=== PATIENT | female | born 1990 | race Caucasian/White ===

== ENCOUNTER → 2021-01-26 16:10 | Outpatient (BNVA) | payer MEDICAID, SELFPAY | PROVIDERS: Visit Provider Family Medicine | DX: E03.9 Hypothyroidism, unspecified (principal); E21.3 Hyperparathyroidism, unspecified; E66.01 Morbid (severe) obesity due to excess calories; Z76.89 Persons encountering health services in other specified circumstances; K75.81 Nonalcoholic steatohepatitis (NASH) | CPT/HCPCS: 80053; 82306; 82310; 83970; 84443; 85025 ==

== ENCOUNTER → 2021-05-11 15:25 | Outpatient (BNVA) | payer MEDICAID, SELFPAY | PROVIDERS: Visit Provider Family Medicine | DX: K75.81 Nonalcoholic steatohepatitis (NASH) (principal); Z13.220 Encounter for screening for lipoid disorders; Z13.6 Encounter for screening for cardiovascular disorders | CPT/HCPCS: 80061 ==

== ENCOUNTER → 2021-11-23 14:59 | Outpatient (BNVA) | payer MEDICAID, SELFPAY | PROVIDERS: PCP Family Medicine; Visit Provider Family Medicine | DX: E03.9 Hypothyroidism, unspecified (principal); E21.3 Hyperparathyroidism, unspecified; E66.01 Morbid (severe) obesity due to excess calories; K75.81 Nonalcoholic steatohepatitis (NASH) | CPT/HCPCS: 80053; 80061; 84439; 84443; 84481; 85025 ==

== ENCOUNTER → 2022-07-11 16:05 | Outpatient (BNVA) | payer MEDICAID, SELFPAY | PROVIDERS: PCP Family Medicine; Visit Provider Family Medicine | DX: E03.9 Hypothyroidism, unspecified (principal); E66.01 Morbid (severe) obesity due to excess calories; E21.3 Hyperparathyroidism, unspecified; K75.81 Nonalcoholic steatohepatitis (NASH); Z13.220 Encounter for screening for lipoid disorders; Z13.6 Encounter for screening for cardiovascular disorders | CPT/HCPCS: 80053; 80061; 82310; 83036; 83970; 84439; 84443; 85025 ==

== ENCOUNTER → 2023-09-19 10:53 | Outpatient (BNVA) | payer MEDICAID, SELFPAY | PROVIDERS: PCP Family Medicine; Visit Provider Family Medicine | DX: R79.89 Other specified abnormal findings of blood chemistry; E03.9 Hypothyroidism, unspecified; E21.3 Hyperparathyroidism, unspecified; E66.01 Morbid (severe) obesity due to excess calories; K75.81 Nonalcoholic steatohepatitis (NASH); E66.9 Obesity, unspecified; E55.9 Vitamin D deficiency, unspecified | CPT/HCPCS: 80053; 80061; 81003; 82306; 82310; 82607; 82728; 82746; 83036; 83550; 83735; 83970; 84100; 84439; 84443; 84481; 85025 ==

== ENCOUNTER → 2024-09-16 15:35 | Outpatient (BNVA) | payer MEDICAID, SELFPAY | PROVIDERS: PCP Family Medicine; Visit Provider Family Medicine | DX: E03.9 Hypothyroidism, unspecified (principal); E21.3 Hyperparathyroidism, unspecified; E66.01 Morbid (severe) obesity due to excess calories; K75.81 Nonalcoholic steatohepatitis (NASH); D64.9 Anemia, unspecified; R79.89 Other specified abnormal findings of blood chemistry; E55.9 Vitamin D deficiency, unspecified | CPT/HCPCS: 80053; 80061; 82306; 82310; 82607; 82728; 83036; 83550; 83970; 84439; 84443; 85027 ==